=== PATIENT | male | born 1950 | race Caucasian/White ===

== ENCOUNTER 2019-01-11 09:33 | Inpatient (IN) | payer OTHER ==
[~2019-01-11] VITALS: Ht 182.9 cm; Wt 79.9 kg
[2019-01-11 09:33] VITALS: BP 141/91
[2019-01-11] MEDS ORDERED: ZOLOFT50 MG PO (09:42)
[2019-01-11 09:48] LABS: ABSOLUTE NEUTROPHILS 8.1 thou/uL (1.4-8.2); BASOPHILS 0.4 % (0.0-2.0); EOSINOPHILS 0.3 % (0.0-3.0); HEMATOCRIT 38.7 % (42.0-52.0); HEMOGLOBIN 13.6 gm/dL (14.0-18.0); LYMPHOCYTES 7.3 % (24.0-44.0); MCH 34.2 pg (26.0-34.0); MCHC 35.2 g/dL (28.0-37.0); MCV 97.2 fL (80.0-100.0); RBC 3.98 mil/uL (4.50-6.00); RDW 13.7 % (10.5-14.5); WBC 9.8 thou/uL (4.0-11.0)
[2019-01-11 10:04] LABS: ANION GAP 14 mmol/L (7-16); BUN 17 mg/dL (7-18); CALCIUM 7.6 mg/dL (8.5-10.1); CHLORIDE 96 mmol/L (98-107); CO2 25 mmol/L (21-32); CREATININE 0.8 mg/dL (0.7-1.3); GLUCOSE 127 mg/dL (74-106); SODIUM 135 mmol/L (136-145); TROPONIN-I <0.06 ng/mL (<0.06)
[2019-01-11 10:05] LABS: POTASSIUM 2.3 mmol/L (3.5-5.1)
[2019-01-11 10:26] VITALS: BP 140/83
[2019-01-11 10:34] LABS: PLATELET COUNT 84 thou/uL (150-400)
[2019-01-11 11:15] LABS: ALBUMIN 3.5 g/dL (3.4-5.0); DIRECT BILIRUBIN 1.2 mg/dL (<0.1-0.3); TOTAL BILIRUBIN 3.4 mg/dL (<0.1-1.0); TOTAL PROTEIN 6.8 g/dL (6.4-8.2)
[2019-01-11 11:17] LABS: CHOLESTEROL 162 mg/dL (<200); HDL CHOLESTEROL 22 mg/dL (>40); LDL CHOLESTEROL 116 mg/dL (<100); TC:HDL 7.4 Ratio (Not establshd); TRIGLYCERIDE 122 mg/dL (<150); VLDL 24 mg/dL (<40)
--- NOTE | 2019-01-11 11:27 | NUR ---
WHIT SACRAMENTO [id number] TOMASZ TINSLEY-FRIEND CELL [id number]
[2019-01-11 11:41] LABS: FOLIC ACID 8.3 ng/mL (8.6-58.9)
--- NOTE | 2019-01-11 14:01 | NUR ---
Pt admitted to unit per cart from emergency room at 1145.Admission hx,assess- ment and care plan completed.Family here for visit.Pt reported having diarrhea for the past one week.Pt was placed on isolation for c-diff.Urine sample sent to lab due to foul odor.Will continue to monitor.
[2019-01-11 14:19] LABS: URINE BILIRUBIN 1+ (Negative); URINE BLOOD 3+ (Negative); URINE COLOR YELLOW; URINE GLUCOSE-RANDOM* NEGATIVE (Negative); URINE KETONES TRACE (Negative); URINE NITRITE-REFLEX NEGATIVE (Negative); URINE PROTEIN (DIPSTICK) 1+ (Negative); URINE SPECIFIC GRAVITY <= 1.005 (1.005-1.035)
[2019-01-11 14:23] LABS: URINE CLARITY HAZY; URINE LEUKOCYTES-REFLEX 2+ (Negative)
[2019-01-11 14:24] LABS: ICTOTEST (BILI CONFIRMATORY) Positive (Negative)
[2019-01-11 14:25] LABS: BACTERIA-REFLEX >30 Many /HPF (None Seen); SQUAMOUS None Seen /LPF (0-3)
[2019-01-11 14:26] LABS: CASTS None Seen /LPF (None Seen); CRYSTALS None Seen /LPF (None Seen); URINE WBC-REFLEX >25 Many /HPF (0-5)
[2019-01-11 16:48] VITALS: BP 150/103
[2019-01-11 19:19] VITALS: BP 154/98
[2019-01-11 19:50] LABS: MAGNESIUM 1.7 mg/dL (1.8-2.4)
--- NOTE | 2019-01-12 04:47 | NUR ---
Patient making slow progress towards outcome goals. IVFluids infusing. ABX started for UTI, urine tea colored and very foul smelling. Special contact isolation pending stool collection to r/o c diff. High fall risks, fall precautions in place.
[2019-01-12 04:57] VITALS: BP 135/91
[2019-01-12 05:13] LABS: INR 1.4; PROTIME 14.5 Seconds (9.3-11.4)
[2019-01-12 05:15] LABS: MAGNESIUM 1.4 mg/dL (1.8-2.4); POTASSIUM 3.1 mmol/L (3.5-5.1)
--- NOTE | 2019-01-12 06:13 | NUR ---
Potassium and magnesium replaced per protocol, levels not yet therapeutic.
[2019-01-12 07:29] VITALS: BP 113/58
[2019-01-12 07:56] VITALS: BP 139/96
[2019-01-12 11:59] LABS: MAGNESIUM 1.3 mg/dL (1.8-2.4); POTASSIUM 3.3 mmol/L (3.5-5.1)
--- NOTE | 2019-01-12 15:29 | NUR ---
Patient was bladder scanned at 1400 per orders. Per the bladder scanner, there was no more than 237 mls of urine present. Will continue to monitor.
[2019-01-12 16:01] VITALS: BP 169/112
[2019-01-12 17:22] LABS: MAGNESIUM 1.3 mg/dL (1.8-2.4)
--- NOTE | 2019-01-12 19:57 | NUR ---
Magnesium and potassium levels were treated per protocol throughout the day. New mag and K+ labs orders accordingly. Patient bladder scanned with max of 237 mls in the bladder this afternoon. The patient had a bowel movement this afternoon that was sent down by the CORK PAINTER AND GRADER for cdiff rule out. Potassium therapeutic by shift change but magnesium is still low at 1.3. Progress was made toward plan of care today.
[2019-01-12 21:00] VITALS: BP 138/78
[2019-01-12 22:05] LABS: HAV IgM AB (ANTI-HAV IgM) Negative (Negative); HEPATITIS B SURFACE AG Negative (Negative); HEPATITIS C VIRUS AB <0.1 (0.0-0.9)
[2019-01-13 03:41] VITALS: BP 132/78
[2019-01-13 04:01] LABS: HEMATOCRIT 31.6 % (42.0-52.0); MCH 34.4 pg (26.0-34.0); MCHC 34.8 g/dL (28.0-37.0); RBC 3.19 mil/uL (4.50-6.00); RDW 14.1 % (10.5-14.5); WBC 4.7 thou/uL (4.0-11.0)
[2019-01-13 04:23] LABS: ALBUMIN 2.6 g/dL (3.4-5.0); CALCIUM 7.1 mg/dL (8.5-10.1); CREATININE 0.5 mg/dL (0.7-1.3); MAGNESIUM 1.2 mg/dL (1.8-2.4); POTASSIUM 3.7 mmol/L (3.5-5.1); TOTAL PROTEIN 5.4 g/dL (6.4-8.2)
--- NOTE | 2019-01-13 05:35 | NUR ---
Patient slow progress towards outcome goals. Vital signs and rhythm stable, dribbles urine but is unable to keep extenal male catheter in place. IVFluids infusing. Good oral intake. Urine output remain tea colored and foul smelling. High fall risks. Fall precautions in place. Electrolytes being replaced per protocol. Lab unable to locate stool specimen sent down by previous shift, remaind in special contact isolation until another specimen received and resulted.
[2019-01-13 07:00] VITALS: BP 135/90
--- NOTE | 2019-01-13 09:06 | EKG ---
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 : 1950 Requested By: Nestor Gipson Order Number: [id number] MD: Reginald Obregon Measurements Intervals [place] Rate: 84 P: -8 ME: 168 QRS: -66 QRSD: 106 T: 255 QT: 496 QTc: 587 Interpretive Statements Sinus rhythm LAD, consider left anterior fascicular block Poor R-wave progression Prolonged QT interval Baseline wander in lead(s) V6 No previous ECG available for comparison Electronically Signed On 01-13-2019 9:06:27 CDT by Reginald Obregon [email or web address] ��������������������������������������������� <ELECTRONICALLY SIGNED> ���������������������������������������� By: Reginald Obregon MD, [facility] ��������������������������������������������� 01/13/19 0906 0935 0935 Reginald Obregon MD, [facility] /EPI
[2019-01-13 12:28] LABS: % SATURATION 24 % (20-39); IRON 37 ug/dL (65-175); TIBC 156 ug/dL (250-450)
--- NOTE | 2019-01-13 15:14 | NUR ---
Met with brother and sister in law in my office at 1500 today as they were directed here by the volunteer office. Patient currently residing in his Father's home who is 91-year old. Father is no longer able to care for son and brother and S-I-L inquiring on discharge steps. Stated that once therapy evaluates they will put in their recommendations which could include a variety of recommendations including home with home health, home with outpatient therapy or skilled level of care. Noted that this information would be shared with Utilization Review Nurse and Yarn Man on the case. Will discuss with MD and therapy team to see if SNF may be an option. Also will have UR tech screen with [employer] for [place] Medicaid as a secondary as patient does not own dwelling he has been living in and will not be allowed to return.
--- NOTE | 2019-01-13 16:00 | NUR ---
PT LEFT UNIT FOR MRI AT APRPOXIMATELY 1545.
--- NOTE | 2019-01-13 18:21 | NUR ---
ASSUMED CARE OF PT AT 0700. PT HAS BEEN A&Ox4. VS STABLE. PT DENIES PAIN. SMALL SMEAR OF BM. PT STOOL SAMPLE SENT AND CDIFF WAS RULED OUT. PT REMAINS WEAK AND UNSTEADY. URINATING VIA URINAL. URINE REMAINS TEA COLORED AND FOUL OF ODOR. MG AND K NOW IN THERAPEUTIC RANGE. PT RECEIVED MRI MRCP TODAY IN ANTICIPATION OF EGD TOMORROW. PT IS MAKING PROGRESS TOWARD POC GOALS. WILL CONTINUE TO MONITOR AND ASSESS.
[2019-01-13 19:14] VITALS: BP 137/100
[2019-01-13 20:05] LABS: IgG 632 mg/dL (700-1600)
[2019-01-14 00:20] VITALS: BP 144/100
[2019-01-14 04:02] VITALS: BP 147/97
[2019-01-14 04:12] LABS: HEMATOCRIT 34.8 % (42.0-52.0); HEMOGLOBIN 12.1 gm/dL (14.0-18.0); MCH 34.4 pg (26.0-34.0); MCHC 34.9 g/dL (28.0-37.0); MCV 98.7 fL (80.0-100.0); RBC 3.52 mil/uL (4.50-6.00); RDW 14.1 % (10.5-14.5); WBC 5.5 thou/uL (4.0-11.0)
[2019-01-14 04:22] LABS: ALBUMIN 2.8 g/dL (3.4-5.0); CREATININE 0.6 mg/dL (0.7-1.3); MAGNESIUM 1.6 mg/dL (1.8-2.4); POTASSIUM 3.8 mmol/L (3.5-5.1); TOTAL BILIRUBIN 1.3 mg/dL (<0.1-1.0); TOTAL PROTEIN 5.9 g/dL (6.4-8.2)
[2019-01-14 04:24] LABS: INR 1.3; PROTIME 13.3 Seconds (9.3-11.4)
[2019-01-14 07:07] LABS: HAV IgM AB (ANTI-HAV IgM) Negative (Negative); HEPATITIS B SURFACE AG Negative (Negative); HEPATITIS C VIRUS AB <0.1 (0.0-0.9)
[2019-01-14 07:19] VITALS: BP 149/99
--- NOTE | 2019-01-14 08:16 | NUR ---
PT MAKING SLOW PROGRESS TOWARDS GOALS. PT REPORTEDLY WEAK AND PT CONFIRMS THIS. X2 ASSIST WITH GAIT BELT TO GET UP TO BEDSIDE COMMMODE. WAS INCONTINET OF STOOL ONCE OVERNIGHT.
--- NOTE | 2019-01-14 11:53 | NUR ---
ASSUMED CARE AT 0700, SHIFT ASSESSMENT DONE, NPO SINCE LAST NIGHT, VSS. LEFT FLOOR FOR EGD AT 1100. DENIES ANY PAIN, NUASEA, VOMITING. WORKED WITH PHYSICAL AND OCCUPATIONAL THERAPHY THIS AM, SAT UP IN THE CHAIR. WILL CONTINUE TO ASSESS AND ASSIST WITH ADLs NEEDED.
--- NOTE | 2019-01-14 13:50 | NUR ---
assessment: CM REVIEWED CHART AND MET WITH PATIENT AT THE BEDSIDE. PT WAS ADMITTED WITH LIVER DISEASE AND HAS HX OF ETOH USE. CM SPOKE WITH CM DIRECTOR WHO MET WITH PATIENTS BROTHER AND SISTER IN LAW WHO REPORT THAT PATIENT LIVES AT HOME WITH THEIR ELDERLY FATHER AND HAS BEEN INCONTINENT AT HOME AND IS TOO HARD FOR THEIR ELDERLY FATHER TO TAKE CARE OF AND HE IS NOT ABLE TO RETURN. CM MET WITH PATIENT AT THE BEDSIDE WHO CONFIRMED HE STAYED WITH HIS FATHER. HE REPORTS HE HAS A CANE AND WALKER AT HOME BUT TRIES TO WALK INDEPENDENTLY. CM DISCUSSED ROLE AND HOW OT/PT ARE RECOMMENDING POST ACUTE CARE. PT STATES HE HAS NOT BEEN TO A SNF BEFORE. CM PROVIDED PATIENT WITH A [facility] SNF LIST FOR HIM TO REVIEW SO CM COULD SEND OUT REFERRALS. HE STATES HE WILL LOOK IT OVER. CM ATTEMPTED TO CONTACT PATIENTS FATHER WHO HE STATES IS HIS DPOA JEFFRY BUT UNABLE TO REACH. CM ALSO DOES NOT HAVE A CONTACT NUMBER LISTED FOR PATIENTS BROTHER. CM WILL CONTINUE TO FOLLOW TO ASSIST NEEDED.
[2019-01-14 16:28] VITALS: BP 140/97
--- NOTE | 2019-01-14 16:58 | P ---
[facility] [place] [address] PROCEDURE REPORT Name: JESSE BOUCHER Room #: 362-P [facility] IN ..#: [id number] Admission: 01/11/19 ������������������ Attend Phys: Ceci Florentino Discharge: ������������������ Date of : 54 Report #: [id number] THIS REPORT FOR: //name// CC: LUIS CARLOS physician/PCP Ceci Roman MD DATE OF SERVICE: 01/14/2019 PROCEDURE PERFORMED: Upper endoscopy with biopsies. HISTORY OF PRESENT ILLNESS: The patient is a 68-year-old male who was admitted with weakness. He also had dark stools recently, elevated liver function tests, history of alcohol use on a regular basis. CT scan of the abdomen and pelvis showed extensive pancreatic calcifications with pancreatic ductal dilation, thickening of the gallbladder. The patient denies abdominal pain, evidence of portal hypertension and possible esophageal varices. No previous history of EGD or colonoscopy. Plan is for EGD today to rule out esophageal varices. Stool is Hemoccult negative x 1. Lipase is normal. DESCRIPTION OF PROCEDURE: The risks and benefits of the procedure were explained to the patient, those risks including but not limited to bleeding, perforation and the risk of sedation. He understood these risks and gave informed consent. Sedation was given using propofol per Anesthesia. Next, using a standard Olympus upper endoscope, the scope was placed in the patient's mouth and advanced under direct vision through the esophagus, stomach and into the second portion of the duodenum. The larynx was normal in appearance. The upper esophagus was normal. In the mid and distal esophagus, severe grade D erosive esophagitis was noted. No obvious varices were noted. There is a possibility of trace varices. This was difficult to tell with the amount of inflammation, but again no obvious esophageal varices seen. No active bleeding. Upon entering the stomach, a small hiatal hernia was noted. There was a mild diffuse gastritis. No evidence of bleeding, no ulcerations or erosions. Biopsies were obtained to rule out H. pylori. The pylorus was normal and patent. The duodenal bulb, first and second portions were all normal. The scope was then withdrawn and the procedure terminated. The patient tolerated the procedure well. IMPRESSION: 1. Grade D erosive esophagitis, possible source of recent dark stools. No active bleeding at this time. 2. No obvious esophageal varices seen on exam today, is somewhat limited due to inflammation as described above. 3. Diffuse gastritis. 4. Small hiatal hernia. 5. Otherwise, normal upper endoscopy. [facility] [address] [place] [address] PROCEDURE REPORT Name: JESSE BOUCHER Room #: 362-P [facility]#: [id number] Admission: 01/11/19 ������������������ Attend Phys: Ceci Florentino Discharge: ������������������ Date of : 54 Report #: [id number] RECOMMENDATIONS: 1. Await biopsy results. 2. Would continue PPI therapy half-way. 3. Will add liquid Carafate today. 4. Would recommend a colonoscopy at some point as the patient has never had a screening colonoscopy. Thank you for allowing me to participate in his care. ��������������������������������������������� <ELECTRONICALLY SIGNED> ���������������������������������������� By: Kyle Rocha MD ��������������������������������������������� 01/14/19 1658 1224 1252 Kyle Rocha MD /nt
[2019-01-14 19:59] VITALS: BP 139/97
[2019-01-15 04:03] VITALS: BP 142/99
[2019-01-15 07:22] VITALS: BP 142/88
[2019-01-15 08:10] LABS: CERULOPLASMIN 15.3 mg/dL (16.0-31.0)
--- NOTE | 2019-01-15 12:05 | NUR ---
on-going assessment: cm reviewed chart and met with patient at the bedside to discuss snf options. PT STATES HE REVIEWED LIST AND WANTED REFERRAL SENT TO [facility] AND [facility]. CM NOTIFIED LIASON AT [facility] WHO STATES THEY WILL NOT HAVE A BED ALL WEEK. CM NOTIFIED LIASON AT [facility] AND SHE STATES THEY DO HAVE A BED. CM FAXED REFERRAL TO [facility] AND ASKED TO SEEK AUTH IF THEY CAN ACCEPT PT. CM ASKED PT IF HE HAD THE NUMBER FOR HIS BROTHER FOR CM TO CONTACT AND PT STATES HE DID NOT KNOW IT. CM WILL CONTINUE TO FOLLOW TO ASSIST NEEDED.
[2019-01-15 12:08] LABS: ANA INTERPRETATION Negative (Negative)
--- NOTE | 2019-01-15 14:24 | NUR ---
PT ALERT AND ORIENTED TIMES FOUR WITH PERIODS OF CONFUSION. VSS, 98%RA, SR ON TELE. PT DENIES PAIN/SOA. PT TOLERATES MEDS AND MEALS. PT WORKED WELL WITH PT/OT UP SITTING IN THE CHAIR. PT PROGRESSING TOWRADS POC GOALS.
[2019-01-15 15:36] VITALS: BP 129/95
[2019-01-15 20:10] VITALS: BP 136/98
[2019-01-16 04:30] VITALS: BP 132/77
[2019-01-16 05:22] LABS: HEMATOCRIT 32.7 % (42.0-52.0); HEMOGLOBIN 11.2 gm/dL (14.0-18.0); MCHC 34.1 g/dL (28.0-37.0); MCV 99.7 fL (80.0-100.0); RBC 3.28 mil/uL (4.50-6.00); WBC 6.2 thou/uL (4.0-11.0)
[2019-01-16 05:27] LABS: INR 1.3; PROTIME 13.7 Seconds (9.3-11.4)
[2019-01-16 05:33] LABS: ALBUMIN 2.7 g/dL (3.4-5.0); CALCIUM 7.7 mg/dL (8.5-10.1); CREATININE 0.6 mg/dL (0.7-1.3); POTASSIUM 3.7 mmol/L (3.5-5.1); TOTAL BILIRUBIN 1.2 mg/dL (<0.1-1.0); TOTAL PROTEIN 5.7 g/dL (6.4-8.2)
--- NOTE | 2019-01-16 05:51 | NUR ---
FOLLOWING POC WITH IVF AND IVPB. PT REFUSES TO WEAR SCD'S AND STATES NO PAIN OR NAUSEA. 24 HOUR URINE COLLECTION BEING DONE. VSS. PT IS A/0X3. MONITORED RHYTHMS ARE NSR WITH PVCS, AND PT IS ON RA. THERE WERE NO BOWEL INCONTINENCE, THOUGH STRANGE ODOR FROM PT'S ROOM. PT HAS ABILITY TO USE URINAL. PLAN IS FOR PT TO DC TO [facility] TODAY. ONLY REQUEST FROM PT WAS FOR ROOM DOOR TO BE CLOSED. CALL LIGHT WITHIN REACH AND HOURLY ROUNDING.
[2019-01-16 07:28] VITALS: BP 150/108
[2019-01-16] MEDS ORDERED: CEFUROXIME250 MG PO (10:17)
[2019-01-16] MEDS ORDERED: TRAZODONE HCL50 MG PO (10:17)
[2019-01-16] MEDS ORDERED: PANTOPRAZOLE SO40 M1 PO (10:17)
[2019-01-16] MEDS ORDERED: CARAFATE 11 GM/10 M1 PO (10:17)
[2019-01-16] MEDS ORDERED: VITAMIN B-1100 M2 PO (10:17)
[2019-01-16] MEDS ORDERED: MIRALAX17 GM PO (10:17)
[2019-01-16] MEDS ORDERED: TRAMADOL 50 MG50 MG PO (10:17)
[2019-01-16] MEDS ORDERED: UNICOMPLEX M TA1 TA1 PO (10:39)
[2019-01-16] MEDS ORDERED: MAGOX 400400 MG PO (10:39)
--- NOTE | 2019-01-16 13:43 | NUR ---
ASSESSMENT: CM REVIEWED CHART. PT HAS ORDERS TO DISCHARGE TO SNF TODAY. PT HAS INSURANCE AUTH AT [place] [facility] AND THEY CAN ACCEPT HIM TODAY. CM SPOKE WITH BEDSIDE RN AND MRI HAS BEEN DONE BUT GI REQUEST THAT PATIENT NOT DISCHARGE UNTIL AFTER 1600 DUE TO 24 HOUR URINE COLLECTION. CM FAXED D/C ORDERS TO [facility] AND TRANSPORTATION HAS BEEN ARRANGED FOR 1730. BEDSIDE RN STATES SHE WILL CONTACT CM IF ANYTHING CHANGES. CM NOTIFIED BEDSIDE RN OF THE TIME OF TRANSPORTATION WELL PATIENTS FATHER. CHART COPY WAS ORDERED. PATIENT CHOICE OF VENDOR FORM SIGNED. PT REPORTS NO FURTHER NEEDS FROM CM AT THIS TIME.
[2019-01-16 15:49] VITALS: BP 138/98
--- NOTE | 2019-01-16 17:05 | PATH ---
[facility] [address] [place] [address] PATHOLOGY RPT PROCEDURE Name: DI MORTENSENJorge Browning Room #: 362-P ADM IN M.R.#: [id number] ������������������ Admission: 01/11/19 ������������������ Date of : 54 Discharge: Report #: [id number] Path Case #: [id number] [facility] Accession Number: [id number] . 01 Material submitted: . stomach - BX OF GASTRITIS TO R/O H. PYLORI . 01 Clinical history: . Cirrhosis liver, R/O H. pylori . 02 Diagnosis: Gastric mucosa, gastritis rule out H. pylori, endoscopic biopsy: - Mild chronic inflammation with focal hyperplastic changes. - Negative for intestinal metaplasia or atrophy. - Negative for Helicobacter pylori (properly controlled immunohistochemical stain performed). (IUV:plumber pipe fitting; 01/16/2019) MBR/01/16/2019 . 02 Electronically signed: . Sabra Sim MD, Pathologist NPI- [id number] . 01 Gross description: . The specimen is received in formalin, labeled "Mark Mortensen, biopsy of gastritis to R/O H. pylori". Received are two segments of pale worley soft tissue ranging in size from 0.5 to 0.6 cm in maximum dimensions. The specimen is submitted entirely in cassette A1. (CAA; 01/15/2019) QAC/QAC . 02 Pathologist provided ICD-10: K29.50 . 02 CPT . 626173, H97054 Specimen Comment: A courtesy copy of this report has been sent to Specimen Comment: [phone], . Specimen Comment: Report sent to / DR KENNEDY Performed at: [address], [place] [id number] MD Davon Spring MD Phone: [phone] Performed at: [address] [id number] MD Sabra Sim MD Phone: [phone]
--- NOTE | 2019-01-16 18:33 | NUR ---
Patient taken down to STAT MRI today by transport. Patient remained confused and forgetful at times but oriented. 24 hour urine catch sent down to lab. Discharge orders put in. Report given to [facility]. Patient transport set up by case management; they picked up patient at 1730. IV removed. Patient taken in wheelchair with all belongings and discharge packet/scripts.
== END 2019-01-16 17:45 | DRG 380 ==
LOC: ER 09:33 → EROBS 10:46 → 3W 10:46
PROVIDERS: Emergency Medicine; Hospitalist; Internal Medicine; Nurse Practitioner; ADMIT Hospitalist
PROC: 0DB68ZX Excision of Stomach, Via Natural or Artificial Opening Endoscopic, Diagnostic (ICD-10-PCS; principal; 2019-01-14)
DX: K22.10 Ulcer of esophagus without bleeding (principal); E43 Unspecified severe protein-calorie malnutrition; G92 Toxic encephalopathy; K76.6 Portal hypertension; M48.50XA Collapsed vertebra, not elsewhere classified, site unspecified, initial encounter for fracture; I85.00 Esophageal varices without bleeding; K86.1 Other chronic pancreatitis; N39.0 Urinary tract infection, site not specified; K70.30 Alcoholic cirrhosis of liver without ascites; K70.9 Alcoholic liver disease, unspecified; E87.6 Hypokalemia; K29.70 Gastritis, unspecified, without bleeding; E83.42 Hypomagnesemia; K44.9 Diaphragmatic hernia without obstruction or gangrene; D69.6 Thrombocytopenia, unspecified; F10.10 Alcohol abuse, uncomplicated; D32.9 Benign neoplasm of meninges, unspecified; B96.20 Unspecified Escherichia coli [E. coli] as the cause of diseases classified elsewhere; Z86.718 Personal history of other venous thrombosis and embolism; Z68.23 Body mass index [BMI] 23.0-23.9, adult; Z86.711 Personal history of pulmonary embolism
CPT/HCPCS: 10879; 62110; 62900; 70005